=== PATIENT | female | born 1975 | race Caucasian/White ===

== ENCOUNTER 2016-05-15 18:53 | Emergency (ER) | payer OTHER ==
[2016-05-15 19:02] VITALS: BP 120/79; PULSE 95; TEMP 98.3; BMI 30.2
--- NOTE | 2016-05-15 19:49 | PDOC ---
History of Present Illness - History of Present Illness Initial Comments: 05/15/16 20:14 The patient is a 40 year old female with no past medical hx who presents to the ED complaining of pain to her right hand and head for four days. The patient reports she was at a parade when she fell down stairs and hit her head and hand onto the ground. The patient reports she has been having headaches and pain to her right hand since. The patient rates the pain to her hand as a 5/10 and reports limited range of motion. The patient states she went to see her PCP today, who sent her to the ED for an X-Ray of her right hand. She states the PCP was not too concerned about her head and reports she only needed to have her hand evaluated. She is right hand dominant. She reports mild numbness to her hand. The patient denies neck pain, nausea, vomiting, diarrhea Allergies: Latex Surgical: Social: Nonsmoker, drinks alcohol on occasion <Yvette Rinaldi - Last Filed: 05/15/16 20:17> <Erin Ya - Last Filed: 05/16/16 02:25> - General Chief Complaint: Injury Stated Complaint: RIGHT HAND PAIN,HEAD ACHE S/P FALL Time Seen by Provider: 05/15/16 19:15 Past History <Yvette Rinaldi - Last Filed: 05/15/16 20:17> - Past Medical History Psychiatric Problems: Yes (DEPRESSION) - Immunization History Immunization Up to Date: Yes - Psycho/Social/Smoking Cessation Hx Anxiety: No Suicidal Ideation: No Smoking Status: No Smoking History: Never smoked Have you smoked in the past 12 months: No Number of Cigarettes Smoked Daily: 0 Information on smoking cessation initiated: No Hx Alcohol Use: No Drug/Substance Use Hx: No Substance Use Type: None <Erin Ya - Last Filed: 05/16/16 02:25> - Past Medical History Allergies/Adverse Reactions: Allergies Allergy/AdvReac Type Severity Reaction Status Date / Time No Known Allergies Allergy Verified 05/15/16 18:56 Home Medications: Ambulatory Orders Desvenlafaxine Succinate [Pristiq] 50 mg PO DAILY 01/10/13 Trazodone HCl [Desyrel -] 50 mg PO HS 01/10/13 Review of Systems - Review of Systems Able to Perform ROS?: Yes Comments:: 05/15/16 20:15 CONSTITUTIONAL: Absent: fever, no chills, no fatigue EYES: Absent: visual changes GI: Absent: abdominal pain, no nausea, no vomiting, no diarrhea MUSCULOSKELETAL: +Right hand pain, head pain. Absent: back pain, neck pain SKIN: Absent: rash NEURO: +Headache, numbness to right hand <Yvette Rinaldi - Last Filed: 05/15/16 20:17> *Physical Exam - Vital Signs Last Vital Signs Temp Pulse Resp BP Pulse Ox 98.3 F 95 H 18 120/79 97 05/15/16 19:00 05/15/16 19:00 05/15/16 19:00 05/15/16 19:00 05/15/16 19:00 - Physical Exam Comments: 05/15/16 20:17 GENERAL: The patient is awake, alert, and fully oriented, in no acute distress. HEAD: +1.5 cm nonbleeding superficial laceration of the left parietal scalp with minimal edema and mild tenderness surrounding. EYES: Pupils equal, round and reactive to light, extraocular movements intact, sclera anicteric, conjunctiva clear with no pallor. NECK: Normal range of motion, supple without lymphadenopathy, JVD, or masses. LUNGS: Breath sounds equal, clear to auscultation bilaterally. No wheeze/ crackles. HEART: Regular rate and rhythm, normal S1 and S2 without murmur or rub. ABDOMEN: Soft/nontender/nondistended. BS wnl. No guarding or rebound. EXTREMITIES:+Right hand moderate tenderness to the palmar aspect of the base of the thumb, minimal edema, no deformity or ecchymosis, pain with abduction and adduction of the thumb. No snuffbox tenderness. The remainder of the right upper extremity is normal with no pain with supination or pronation of the forearm. Strong palpable radial pulse at the wrist. NEUROLOGICAL: Cranial nerves II through XII grossly intact. Normal speech, normal gait. PSYCH: Normal mood, normal affect. SKIN: Warm, Dry, normal turgor. No rashes. <Yvette Rinaldi - Last Filed: 05/15/16 20:17> - Vital Signs Last Vital Signs Temp Pulse Resp BP Pulse Ox 98.3 F 95 H 18 120/79 97 05/15/16 19:00 05/15/16 19:00 05/15/16 19:00 05/15/16 19:00 05/15/16 19:00 <Erin Ya - Last Filed: 05/16/16 02:25> ED Treatment Course - ADDITIONAL ORDERS Additional order review: Laboratory Results 05/15/16 16:28 Urine HCG, Qual Negative <Yvette Rinaldi - Last Filed: 05/15/16 20:17> - ADDITIONAL ORDERS Additional order review: Laboratory Results 05/15/16 16:28 Urine HCG, Qual Negative <Erin Ya - Last Filed: 05/16/16 02:25> Progress Note - Progress Note Progress Note: Documentation has been prepared under my direction and personally reviewed by me in its entirety. I attest that this documented accurately reflects all work, treatment, procedures and medical decision making performed by me. <Erin Ya - Last Filed: 05/16/16 02:25> Medical Decision Making - Medical Decision Making As noted above, this 40-year-old woman is referred to the ER by her PMD, Dr. Auguste with a history of fall 4 days ago. At that time, she hit the left side of her head with no clear evidence of LOC and impacted her right hand on falling. Although she has had a global headache since the fall, there are no associated vomiting/speech or vision changes/lethargy. Neurologic exam shows no focal deficits. She does have point tenderness at the base of her right thumb and pain with abduction/adduction of the thumb. Patient is right handed. Right hand x-ray performed. No evidence of fracture or dislocation. Baseball type splint applied to the right thumb. Patient will be discharged with instructions to use the splint for the next week. The patient does not have a hand surgeon/orthopedist. She will be given Dr. Rock referral information for follow-up, especially if she has continued pain in the right thumb, within the next week. <Erin Ya - Last Filed: 05/16/16 02:25> *DC/Admit/Observation/Transfer - Attestations Scribe Attestion: 05/15/16 20:15 Documentation prepared by Yvette Rinaldi, acting as medical massage therapist for Erin Ya MD/. <Yvette Rinaldi - Last Filed: 05/15/16 20:17> <Erin Ya - Last Filed: 05/16/16 02:25> Diagnosis at time of Disposition: Sprain of right thumb Qualifiers: Encounter type: initial encounter Sprain of finger site: metacarpophalangeal joint Qualified Code(s): S63.641A - Sprain of metacarpophalangeal joint of right thumb, initial encounter - Discharge Dispostion Disposition: HOME Condition at time of disposition: Stable - Referrals Referrals: Romaine Auguste MD [Primary Care Provider] - Selvin Rock MD [Staff Physician] - 1 week - Patient Instructions Printed Discharge Instructions: Finger Sprain Additional Instructions: splint to thumb for the next week Motrin/Aleve as needed followup with Dr Rock(hand surgeon)if thumb pain persists return to ER if headache/hand pain becomes severe or you experience nausea/ vomiting followup with Dr Auguste as scheduled
== END 2016-05-15 20:54 | disposition home or self-care (01) ==
LOC: FER 18:53
PROC: 2W3JX1Z Immobilization of Right Finger using Splint (ICD-10-PCS; principal; 2016-05-15)
DX: S63.641A Sprain of metacarpophalangeal joint of right thumb, initial encounter (principal); W18.39XA Other fall on same level, initial encounter; Y93.89 Activity, other specified; Y92.410 Unspecified street and highway as the place of occurrence of the external cause; F32.9 Major depressive disorder, single episode, unspecified
CPT/HCPCS: 73130-TC-RT; 84703; 99282-25